=== PATIENT | male | born 1975 | race Caucasian/White ===

== ENCOUNTER 2019-11-18 15:38 | Emergency (ER) | payer MEDICAID ==
[~2019-11-18] VITALS: Ht 177.8 cm; Wt 69.0 kg
[2019-11-18] MEDS ORDERED: BACITRACIN ZINC OINT UDPKT TOP ONE (16:00)
[2019-11-18] MEDS ORDERED: LIDOCAINE HCL/PF 1% 10 MG/ML 5ML VIAL IJ ONE (16:00)
[2019-11-18] MEDS ORDERED: IBUPROFEN 600MG TABLET PO ONE (16:00)
[2019-11-18 19:43] VITALS: BP 126/74
== END 2019-11-18 19:44 | disposition home or self-care (01) ==
LOC: ER 15:38
DX: S67.01XA Crushing injury of right thumb, initial encounter (principal); S61.011A Laceration without foreign body of right thumb without damage to nail, initial encounter; W20.8XXA Other cause of strike by thrown, projected or falling object, initial encounter; Y93.89 Activity, other specified; Y92.69 Other specified industrial and construction area as the place of occurrence of the external cause
CPT/HCPCS: 12002; 73130; 99284; J3490

== ENCOUNTER 2019-11-22 18:41 | Emergency (ER) | payer MEDICAID ==
[~2019-11-22] VITALS: Ht 172.7 cm; Wt 73.0 kg
[2019-11-22 18:44] VITALS: BP 156/87
== END 2019-11-22 19:27 | disposition home or self-care (01) ==
LOC: ER 18:41
DX: Z48.00 Encounter for change or removal of nonsurgical wound dressing (principal)
CPT/HCPCS: 99281

== ENCOUNTER 2019-11-29 11:29 | Emergency (ER) | payer MEDICAID ==
[~2019-11-29] VITALS: Ht 175.3 cm; Wt 82.0 kg
[2019-11-29 13:49] VITALS: BP 123/83
== END 2019-11-29 13:50 | disposition home or self-care (01) ==
LOC: ER 11:29
DX: Z48.02 Encounter for removal of sutures (principal)
CPT/HCPCS: 99281